=== PATIENT | male | born 1975 | race Asian ===

== ENCOUNTER 2021-02-20 15:19 | Emergency (ER) | payer MEDICAID, OTHER ==
[~2021-02-20] VITALS: Ht 177.8 cm; Wt 95.3 kg
[2021-02-20 15:30] VITALS: BP_SYST 147
[2021-02-20] MEDS ORDERED: ACET-2634 PO (16:24)
[2021-02-20] MEDS ORDERED: IBUP-1969 PO (16:24)
[2021-02-20 17:18] VITALS: BP_SYST 147
== END 2021-02-20 17:18 | disposition home or self-care (01) ==
LOC: SED 15:19
DX: S52.124A Nondisplaced fracture of head of right radius, initial encounter for closed fracture (principal); Z88.6 Allergy status to analgesic agent; Z79.899 Other long term (current) drug therapy; V00.121A Fall from non-in-line roller-skates, initial encounter; Y93.51 Activity, roller skating (inline) and skateboarding; Y92.89 Other specified places as the place of occurrence of the external cause; Y99.8 Other external cause status
CPT/HCPCS: 99283